=== PATIENT | male | born 1965 | race African-American/Black ===

== ENCOUNTER 2017-02-26 18:27 | Emergency (ER) | payer OTHER ==
--- NOTE | 2017-02-26 19:25 | PDOC ---
Rapid Medical Evaluation Time Seen by Provider: 02/26/17 19:22 Medical Evaluation: Allergies Allergy/AdvReac Type Severity Reaction Status Date / Time No Known Allergies Allergy Verified 11/10/15 02:07 02/26/17 19:22 I have performed a brief in-person evaluation of this patient. The patient presents with a chief complaint of: Injury from 02/13/2017, lifting a chair out of a "high box", causing him to lift over his head, he felt a "pop" causing ant left shoulder and LBP, Neg bladder/bowel dysfunction Pertinent physical exam findings: Left shoulder decreased R.O.M./pain, Neg obvious deformities Pain on palp to lumbar region I have ordered the following: Xray: left shoulder/ LS spine The patient will proceed to the ED for further evaluation.
[2017-02-26 19:27] VITALS: BP 126/80; PULSE 81; TEMP 98.1; BMI 24.7
[2017-02-26] MEDS ORDERED: IBUPROFEN 400 MG TABLET (FP) PO ONE ×2 (20:18)
--- NOTE | 2017-02-26 20:25 | PDOC ---
History of Present Illness - General Chief Complaint: Back Pain Stated Complaint: PAIN Time Seen by Provider: 02/26/17 19:22 History Source: Patient Exam Limitations: No Limitations - History of Present Illness Initial Comments: 02/26/17 20:19 CHIEF COMPLAINT: Injury to lower back HISTORY OF PRESENT ILLNESS:[51]-year-old [male, while at work on 02/13 lifted heavy chairs out of a box, felt a pull to the left shoulder and lower back. Has been taking Motrin with some resolve however pain persists. ],[ Nonradiating pain, no neurosensory deficits, no bowel or bladder difficulty incontinence or urinary retention, no saddle anesthesia, no footdrop. No history of IVDU or history of cancer. ] REVIEW OF SYSTEMS: GENERAL: Afebrile, denies any weakness RESPIRATORY: No cough, wheezing, or hemoptysis. CARDIAC: No chest pain or shortness of breath MUSCULOSKELETAL: Pain to generalized lower back. Lower spinal point tenderness, Pain to the lateral left shoulder pain with abduction. ] SKIN : No erythema, no bruising, no deformity. GI/: Denies any abdominal pain, no urinary difficulty, incontinence or urinary retention. RECTAL: Denies any difficulty this A.m. NEUROLOGICAL: Denies any numbness or tingling. No neurosensory deficits. PHYSICAL EXAM: GENERAL: The patient is awake, alert, and fully oriented, in no acute distress. RESPIRATORY: Lungs clear bilaterally, no rhonchi wheezes or crackles CARDIAC: S1-S2 audible, no murmur rub or gallop MUSCULOSKELETAL: Pain to generalized lower back, nonradiating, no tingling or sensory deficit. Less than 2 second cap refill, +4 popliteal and pedal pulses. GI/: Abdomen soft, nontender, nondistended. No rebound tenderness. No masses palpable. MUSCULOSKELETAL: Lower lumbar spinal point tenderness, pain to the right lateral shoulder, unable to fully abduct arm. Normal reflexive and no deficits to sensation or strength. RECTAL: Normal Rectal Tone]. SKIN: Warm, Dry, normal turgor, no erythema, no edema no bruising. Past History - Past Medical History Allergies/Adverse Reactions: Allergies Allergy/AdvReac Type Severity Reaction Status Date / Time No Known Allergies Allergy Verified 11/10/15 02:07 Home Medications: Ambulatory Orders Cyclobenzaprine HCl [Flexeril 10 mg] 10 mg PO BID PRN #20 tablet 02/26/17 Ibuprofen [Motrin -] 800 mg PO QID 02/26/17 Methylprednisolone [Medrol Dose Jose] 4 mg PO ASDIR #21 tablet 02/26/17 - Immunization History Immunization Up to Date: Yes - Suicide/Smoking/Psychosocial Hx Smoking History: Current every day smoker Have you smoked in the past 12 months: No Number of Cigarettes Smoked Daily: 10 Information on smoking cessation initiated: No Hx Alcohol Use: No Drug/Substance Use Hx: No Substance Use Type: None *Physical Exam - Vital Signs Last Vital Signs Temp Pulse Resp BP Pulse Ox 98.1 F 81 20 126/80 99 02/26/17 19:23 02/26/17 19:23 02/26/17 19:23 02/26/17 19:23 02/26/17 19:23 Medical Decision Making - Medical Decision Making 02/26/17 20:25 A/P: Patient with injury to lower back and injury to left shoulder since x-ray awaiting results Motrin 800 mg by mouth 1 given. 02/26/17 20:52 Xrays are negative for acute fractures. I will discharge patient to follow up with orthopedics. I will discharge on a medrol dosepack. Flexaril for spasm. I discussed the physical exam findings, ancillary test results and final diagnoses with the patient. I answered all of the patient's questions. The patient was satisfied with the care received and felt comfortable with the discharge plan and treatment plan. The patient will call to arrange follow-up and will return to the Emergency Department with any new, persistent or worsening symptoms. *DC/Admit/Observation/Transfer Diagnosis at time of Disposition: Shoulder injury Qualifiers: Encounter type: initial encounter Laterality: left Qualified Code(s): S49.92XA - Unspecified injury of left shoulder and upper arm, initial encounter Back injury Qualifiers: Encounter type: initial encounter Qualified Code(s): S39.92XA - Unspecified injury of lower back, initial encounter - Discharge Dispostion Disposition: HOME Condition at time of disposition: Stable Admit: No - Prescriptions Prescriptions: Cyclobenzaprine HCl [Flexeril 10 mg] 10 mg PO BID PRN #20 tablet PRN Reason: Pain Methylprednisolone [Medrol Dose Jose] 4 mg PO ASDIR #21 tablet - Referrals Referrals: Marcello Navarrete MD [Staff Physician] - Clemente Santos MD [Staff Physician] - - Patient Instructions Additional Instructions: 1. Please return to the emergency department with any numbness, tingling, weakness, numbness or tingling to groin or legs, or loss of bowel or bladder function. 2. Use pain medication as ordered. 3. Please is to followup in the office of Dr. Navarrete for evaluation within a week if no improvement. 4. Ice or heat 5. Refrain from lifting anything above 10 pounds, until pain resolved. - Post Discharge Activity Forms/Work/School Notes: Back to Work
== END 2017-02-26 21:00 | disposition home or self-care (01) ==
LOC: JER 18:27 → JERFT 18:27
DX: S49.82XA Other specified injuries of left shoulder and upper arm, initial encounter (principal); S39.82XA Other specified injuries of lower back, initial encounter; X50.0XXA Overexertion from strenuous movement or load, initial encounter; Y93.89 Activity, other specified; Y92.59 Other trade areas as the place of occurrence of the external cause; Y99.0 Civilian activity done for income or pay
CPT/HCPCS: 72100-TC; 73030-TC-LT; 99281-25

== ENCOUNTER 2019-04-07 12:50 | Emergency (ER) | payer OTHER ==
[2019-04-07 13:19] VITALS: BP 125/84; PULSE 75; TEMP 98.3; BMI 26.0
[2019-04-07] MEDS ORDERED: CYCLOBENZAPRINE HCL 10 MG TABLET (FP) PO ONE (13:37)
[2019-04-07] MEDS ORDERED: KETOROLAC TROMETHAMINE 30 MG/1 ML VIAL IM ONE (13:37)
[2019-04-07] MEDS ORDERED: CYCLOBENZAPRINE HCL 10 MG TABLET (FP) ONE (13:51)
[2019-04-07] MEDS ORDERED: KETOROLAC TROMETHAMINE 30 MG/1 ML VIAL ONE (13:51)
[2019-04-07] MEDS ORDERED: IBUPROFEN 600 MG TABLET (FP) PO ONE ×2 (13:56→13:57)
--- NOTE | 2019-04-07 14:07 | PDOC ---
History of Present Illness - General Chief Complaint: Back Pain Stated Complaint: BACK PAIN Time Seen by Provider: 04/07/19 13:27 History Source: Patient Exam Limitations: No Limitations - History of Present Illness Initial Comments: 04/07/19 14:04 53-year-old male denies past medical history presents complaining of left mid back pain x2 days. Pain began after carrying a heavy bathroom sink. Denies weakness, numbness and tingling to upper extremities. Denies chest pain, shortness of breath, abdominal pain or any other complaints. Has not taken any pain medications. ROS: GENERAL/CONSTITUTIONAL: No fever, chills, weakness, dizziness HEAD, EYES, EARS, NOSE AND THROAT: No changes in vision, No ear pain or discharge, No sore throat CARDIOVASCULAR: No chest pain RESPIRATORY: No shortness of breath or cough GASTROINTESTINAL: No pain, nausea, vomiting, diarrhea or constipation GENITOURINARY: No dysuria MUSCULOSKELETAL: Left upper back pain SKIN: No rash NEUROLOGIC: No headache, vertigo, loss of consciousness, or loss of sensation PE: GENERAL: well-appearing, NAD HEAD: NCAT EYES: Pupils equal, round and reactive to light, sclera anicteric, conjunctiva clear ENT: pharynx: no erythema, no exudate, uvula midline NECK: supple CHEST: nontender RESP: clear, no w/r/r CARDIO: rrr, no m/g/r ABD: +BS, soft, nontender, non distended BACK: Minimal paraspinal tenderness to palpation to left mid back, no midline spinal ttp, no CVAT EXTREMITIES: Normal range of motion, 5/5 strength and sensation, no edema NEUROLOGICAL: Normal speech, normal gait SKIN: Warm, Dry Is this a multiple visit Asthma Patient?: No Past History - Past Medical History Allergies/Adverse Reactions: Allergies Allergy/AdvReac Type Severity Reaction Status Date / Time No Known Allergies Allergy Verified 04/07/19 13:19 Home Medications: Ambulatory Orders Cyclobenzaprine HCl [Flexeril 10 mg] 10 mg PO BID PRN #20 tablet 02/26/17 Ibuprofen [Motrin -] 800 mg PO QID 02/26/17 Methylprednisolone [Medrol Dose Jose] 4 mg PO ASDIR #21 tablet 02/26/17 COPD: No - Immunization History Immunization Up to Date: Yes - Psycho Social/Smoking Cessation Hx Smoking History: Former smoker Have you smoked in the past 12 months: No Number of Cigarettes Smoked Daily: 10 Information on smoking cessation initiated: No Hx Alcohol Use: No Drug/Substance Use Hx: No Substance Use Type: None *Physical Exam - Vital Signs Last Vital Signs Temp Pulse Resp BP Pulse Ox 98.3 F 75 17 125/84 97 04/07/19 13:00 04/07/19 13:00 04/07/19 13:00 04/07/19 13:00 04/07/19 13:00 ED Treatment Course - Medications Given in the ED: ED Medications Discontinued Medications Generic Name Dose Route Start Last Admin Trade Name Janice PRN Reason Stop Dose Admin Cyclobenzaprine HCl 10 mg 04/07/19 13:37 04/07/19 13:51 Flexeril - PO 04/07/19 13:38 10 mg ONCE ONE Administration Ibuprofen 600 mg 04/07/19 13:56 04/07/19 13:56 Motrin - PO 04/07/19 13:57 600 mg ONCE ONE Administration Ketorolac Tromethamine 30 mg 04/07/19 13:37 04/07/19 13:51 Toradol Injection - IM 04/07/19 13:38 30 mg ONCE ONE Administration Medical Decision Making - Medical Decision Making 04/07/19 14:06 53-year-old male denies past medical history presents complaining of left mid back pain x2 days status post heavy lifting. Neurologically intact No midline spinal tenderness to palpation Declined IM Toradol Will give p.o. ibuprofen and Flexeril Reassess Discharge - Discharge Information Problems reviewed: Yes Clinical Impression/Diagnosis: Back pain Qualifiers: Back pain location: back pain in other location Chronicity: unspecified Qualified Code(s): M54.89 - Other dorsalgia Condition: Stable Disposition: HOME - Follow up/Referral - Patient Discharge Instructions Additional Instructions: Take ibuprofen 600 mg every 6 hours as needed Return to ED if numbness, tingling and weakness to upper extremities or worsening symptoms - Post Discharge Activity
== END 2019-04-07 14:18 | disposition home or self-care (01) ==
LOC: JERFT 12:50
PROC: 3E0233Z Introduction of Anti-inflammatory into Muscle, Percutaneous Approach (ICD-10-PCS; principal; 2019-04-07)
DX: M54.89 Other dorsalgia (principal); Z87.891 Personal history of nicotine dependence
CPT/HCPCS: 96372; 99281-25